=== PATIENT | female | born 1945 | race Caucasian/White ===

== ENCOUNTER 2025-05-26 18:07 | Emergency (ER) | payer OTHER, SELFPAY ==
[2025-05-26 18:11] VITALS: PULSE 90; RESP 20; O2SAT 99; BMI 20.1
--- NOTE | 2025-05-26 18:13 | EDNOTE_ITS ---
ED Weakness RME/HPI General Chief complaint: Weakness Stated complaint: WEAKNESS Time Seen by Provider: 05/26/25 18:11 Arrival date/time: 05/26/25 18:07 Limitations: no limitations RME / HPI RME / HPI Narrative: 80-year-old female is brought in by EMS for generalized weakness that started this morning. She has no cough, congestion, abdominal pain, nausea, vomiting. She has no fevers or chills. Has no urinary complaints. MD Complaint: generalized weakness Related Data Allergies Allergy/AdvReac Type Severity Reaction Status Date / Time acetaminophen Allergy Mild Verified 08/30/12 15:29 hydrocodone bit Allergy Mild Verified 08/30/12 15:29 Sulfa (Sulfonamide Allergy Mild Verified 08/30/12 15:29 Antibiotics) tramadol Allergy Mild Verified 08/30/12 15:29 Review of Systems Review of Systems Systems Reviewed: All systems reviewed, normal except as documented ED Exam General Limitations: Present no limitations General appearance: Present alert and in no apparent distress Head Head exam: Present atraumatic Eye Eye exam: Present normal appearance, PERRL and EOMI ENT ENT exam: Present normal exam, normal oropharynx and mucous membranes moist Neck Neck exam: Present normal inspection, full ROM and trachea midline Chest Chest inspection: Present normal inspection and symmetric chest wall rise Respiratory Respiratory exam: Present normal lung sounds bilaterally Cardiovascular Cardiovascular exam: Present regular rate, normal rhythm and normal heart sounds Abdominal Exam Abdominal exam: Present soft and normal bowel sounds Extremities Exam Extremities exam: Present normal inspection and full ROM Back Exam Back exam: Present normal inspection and full ROM Neurological Exam Neurological exam: Present alert and oriented X3 Psychiatric Psychiatric exam: Present normal affect Skin Skin exam: Present warm, dry, intact and normal color Course Quality Measures none Orders Category Date Time Status Bedside COVID-19 Antigen Test NOW Care 05/26/25 19:30 Completed Bedside Influenza A&B Antigen Test NOW Care 05/26/25 19:30 Completed XR chest 1V Stat Exams 05/26/25 18:29 Completed CBC Stat Lab 05/26/25 18:55 Completed CMP [Comprehensive Metabolic Panel] Stat Lab 05/26/25 18:55 Completed FLU A&B [Influenza A & B Rapid Panel] Stat Lab 05/26/25 18:12 Ordered UA [Urinalysis] Stat Lab 05/26/25 19:55 Completed Sodium Chloride 0.9% 500 ml [Ns] 500 ml Med 05/26/25 21:05 Active IV 999 mls/hr cefTRIAXone/D5w 1gm IV premix [Rocephin/D5w 1gm IV Med 05/26/25 21:05 Active premix] 1 gm in 50 ml IV X1 Vital Signs Vital signs: Vital Signs Temperature 100.2 F 05/26/25 18:30 Pulse Rate 78 05/26/25 18:30 Respiratory Rate 22 H 05/26/25 18:30 Blood Pressure 169/84 H 05/26/25 18:30 Pulse Oximetry (%) 93 L 05/26/25 18:30 Oxygen Delivery Method Room Air 05/26/25 18:30 Weakness MDM Narrative MDM Narrative:: 80-year-old female is brought in by EMS for generalized weakness that started this morning. She has no cough, congestion, abdominal pain, nausea, vomiting. She has no fevers or chills. Has no urinary complaints. On exam, patient is nontoxic-appearing in no visible signs distress. Vital signs are stable. She is afebrile. Workup reveals no leukocytosis, anemia, or metabolic derangement. Urinary tract infection is present. Screening test for COVID and influenza are negative. Chest reveals no pneumonia. When her test results were discussed with the patient and her son. Her son lives in [place], [place], he states he is able to visit her semifrequently but unable to provide continued care. There is no other family members in the region. 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 Patient has had ongoing episodes of forgetfulness and had some falls over the last 3 to 4 years. She has had no recent falls. She is here today for acute generalized weakness and a UTI. Patient may benefit from long-term placement in the family is agreeable with this. We will treat her urinary tract infection. Patient may benefit from OT evaluation and cognitive evaluation. She is agreeable to admission the hospital. Case discussed with her hospitalist who will admit the patient. Patient data External records reviewed:: None Clinical information provided by:: patient and family Social determinants that could affect healthcare access:: none (Patient was home alone) Patient has the following chronic illnesses:: n/a How is presenting disease/condition affected by chronic disease/condition?: exacerbated by Evaluation data The following diagnostics were reviewed and interpreted by me:: lab results (Patient has no leukocytosis or significant anemia. Metabolic panel is unremarked with the exception of a mild hyperglycemia at 128. Urine is consistent with a UTI, she has 42 erythrocytes and 444 leukocytes present. No squamous cells. 2+ bacteria.) Lab and/or radiology exams considered but not ordered:: n/s Interpretation Summary: Workup is consistent with UTI Medications / Prescriptions Medications or Prescriptions considered but not ordered:: n/a Medication administrations:: Medication Administration History Ceftriaxone Sodium/Dextrose (Rocephin/D5w 1gm Iv Premix) 1 gm in 50 mls @ 100 mls/hr IV X1 ONE Stop: 05/26/25 21:34 Last Admin: 05/26/25 21:15 Dose: 100 mls/hr Documented By: CASSIE Sodium Chloride (Ns) 500 mls @ 999 mls/hr IV .Q31M ONE Stop: 05/26/25 21:35 Last Admin: 05/26/25 21:13 Dose: 999 mls/hr Documented By: CASSIE Ceftriaxone Consultations Consultation(s) initiated? (list below): No Diagnosis Weakness Differential Diagnosis: anemia, hypoglycemia, sepsis and dehydration Most likely diagnosis given after review of the tests above:: UTI Admission Indicated Admission indicated?: not indicated Admission Request Was there a request for admission?: No Disposition Plan Disposition Plan: Discharge Discharge Attestation Discharge Attestation: The patient and all family members were given an opportunity to ask questions and understood the discharge instructions. Discharge instructions specifically effects, indications for sooner follow up or return to the emergency department, and the expected course of current diagnosis. Patient condition: Stable Discharge Plan Plan Patient Disposition: Admit Acute Care w/in Hospital Patient condition on transfer: Stable Prescriptions/Referrals Referrals: No Primary/Family,Physician [Primary Care Provider] - In 1 week Problem List Clinical Impression: Urinary tract infection Patient/Caregiver Discharge Instructions Education Materials: ED CYSTITIS Female Adult Print Language: Albanian Stand Alone Forms: Yasmin Award Info., Patient Portal Info Letter
--- NOTE | 2025-05-26 18:29 | XR_ITS ---
Examination: AP chest single view TECHNIQUE: AP portable semiupright chest single view Date and time: May 26, 2025 1857 hours Comparison September 18, 2021 INDICATIONS: Fever right flank pain beginning 2 days ago. FINDINGS: Normal heart size No lobar pneumonia. Minor atelectasis left base Mild vascular congestion. Prominent osteopenia IMPRESSION: No lobar pneumonia
[2025-05-26 18:30] VITALS: BP 169/84; PULSE 78; RESP 22; TEMP 37.9; O2SAT 93
[2025-05-26 19:18] LABS: Basophils # (Auto) 0.0 Thou/mm3 (0.0-0.2); Basophils % (Auto) 1 % (0-2.5); Eosinophils # (Auto) 0.0 Thou/mm3 (0.0-0.5); Eosinophils % (Auto) 0 % (0-10); Hematocrit 43.6 % (36.0-46.0); Hemoglobin 15.0 g/dL (12.0-16.0); Immature Granulocytes Auto 0.02 Thou/mm3 (0.00-0.00); Lymphocytes # (Auto) 0.7 Thou/mm3 (1.0-4.8); Lymphocytes % (Auto) 11 % (10-50); Mean Corpuscular HGB Conc 34.4 g/dl (31.0-37.0); Mean Corpuscular Hemoglobin 28.2 pg (25.0-35.0); Mean Corpuscular Volume 82 fL (80-100); Monocytes # (Auto) 0.3 Thou/mm3 (0.0-0.8); Monocytes % (Auto) 6 % (0-12); Neutrophils # (Auto) 4.9 Thou/mm3 (1.8-7.7); Neutrophils % (Auto) 82 % (37-80); Nucleated Red Blood Cell # 0.00 Thou/mm3 (0.00-0.00); Nucleated Red Blood Cell % 0 /100 WBC (0); Platelet Count 252 Thou/mm3 (140-440); RDW Standard Deviation 37.3 fL (36.4-46.3); Red Blood Count 5.32 Miln/mm3 (4.00-5.20); White Blood Count 6.0 Thou/mm3 (3.6-11.0)
[2025-05-26 19:37] LABS: Alanine Aminotransferase < 7 U/L (10-49); Albumin, Serum 4.2 gm/dL (3.4-4.8); Albumin/Globulin Ratio 1.4 (1.2-2.2); Alkaline Phosphatase 95 U/L (46-116); Anion Gap 10 (7-16); Aspartate Amino Transferase 15 U/L (0-34); BUN/Creatinine Ratio 12 Ratio (12-20); Bilirubin,Total 0.7 mg/dL (0.3-1.2); Blood Urea Nitrogen 11 mg/dL (9-23); Calcium 9.2 mg/dL (8.3-10.6); Calcium (Corrected) 9.2 mg/dL (8.5-10.1); Carbon Dioxide 23.0 mMol/L (20.0-31.0); Chloride 106 mMol/L (98-107); Creatinine (Component) 0.9 mg/dL (0.6-1.3); Estimated Creatinine Clearance 45.4 mL/min (>60); Globulin 3.1 gm/dL (2.3-3.5); Glucose 128 mg/dL (74-106); Osmolality,Calculated 278 (275-295); Potassium 4.2 mMol/L (3.4-5.1); Sodium 139 mMol/L (136-145); Total Protein 7.3 gm/dL (5.7-8.2); eGFR > 60 See Note
[2025-05-26 19:59] LABS: Collection Type, Urine Voided
[2025-05-26 20:09] LABS: Amorphous Crystals,Urine Present (Absent); Bacteria,Urine 2+; Bilirubin,Urine Negative (Negative); Blood,Urine 1+ (Negative); Clarity,Urine Turbid (Clear/Hazy); Color,Urine Yellow (Lt Yel-Yel); Glucose, Urine Negative (Negative); Ketones,Urine Negative (Negative); Leukocyte Esterase,Urine Positive (Negative); Nitrite,Urine Positive (Negative); PH,Urine 7.5 (5.0-7.0); Protein,Urine Trace (Neg - Trace); RBC,Urine 42 /hpf (0-3); Specific Gravity,Urine 1.013 (1.001-1.035); Squamous Epithelial Cell,Urine 1 /hpf (0-5); Urobilinogen,Urine Negative mg/dL (0.0-1.0); WBC,Urine 444 /hpf (0-5)
[2025-05-26] MEDS: SODIUM CHLORIDE 0.9% 500 ML 500 ML 999 ML IV (21:13)
[2025-05-26] MEDS: cefTRIAXone/D5w 1gm IV premix 1 GM/50 ML BAG IV (21:15)
[2025-05-26 22:01] VITALS: BP 172/86; PULSE 77
[2025-05-26] MEDS: hydrALAZINE INJ 20 MG/ML VIAL 5 MG IVP (22:01)
--- NOTE | 2025-05-26 22:01 | EVENTNT_ITS ---
Documentation for date of: 05/26/25 Event Note Event Note: 05/26/2025: Call from ED around 9:30 PM for patient Julia Bennett, 80-year-old presented with weakness found to have simple cystitis on urinalysis. Patient seen and examined alongside my attending; warm, the patient is awake and alert oriented x 3 and states that she has some burning sensation when she urinates but otherwise feels well. Patient denies having any fever/chills, hematuria, chest pain, shortness of breath or abdominal pain. Recommendation is for the patient to be treated for the simple cystitis and to be discharged based on placement needs. Robinson Gonzalez, DO PGY-2 Internal Medicine - [facility] Patient seen at bedside. She is alert and oriented x 3 and not encephalopathic at this time. Patient was found to have urinary tract infection. She also endorses generalized weakness. At this time I do not feel patient meets inpatient criteria. Recommend continuing antibiotics and physical therapy evaluation in the morning as patient lives alone and unsafe to discharge home. Likely will need to be placed to SNF from emergency room. Recommend outpatient referral to neurology as family has noticed a stepwise decline in her memory and likely has some form of undiagnosed dementia but currently is alert and oriented x 3. Dr. Martinez MD
--- NOTE | 2025-05-26 23:10 | EDNOTE_ITS ---
Emergency Room Addendum <Greta Bui - Last Filed: 05/27/25 03:00> Addendum Narrative: I took over the care from previous shift provider, Power Jaramillo PA-C, at 2300 on 05/26/2025. See previous notes for complete H & P and ED course. I was asked to take over this patient pending physical therapy evaluation in the morning. Patient is signed out to Dr. Cazares at 0600 on 05/27/25 pending PT evaluation and case management social worker consultation. Hardy Rodriguez MD <Hardy Rodriguez MD - Last Filed: 05/27/25 03:20> Addendum Narrative: I took over the care from previous shift provider, Power Jaramillo PA-C, at 2300 on 05/26/2025. See previous notes for complete H & P and ED course. Patient needs evaluation by our PT/OT and mental health social worker for long term placement. Rocephin and IV fluid ordered for UTI. At 6 AM on 05/27/2025, the care of the patient was transferred to Dr. Cazares. During my watch, the patient remained stable. Hardy Rodriguez MD
[2025-05-27] VITALS (7 sets, daily range): BP systolic 154–175; BP diastolic 71–91; PULSE 64–81; RESP 17–22; TEMP 36.8–37.4; O2SAT 94–96; BMI 11.0
[2025-05-27] MEDS: SODIUM CHLORIDE 0.9% 1000 ML 1,000 ML 100 ML IV (03:55)
--- NOTE | 2025-05-27 04:00 | PC.NURSE ---
PT GIVEN A SANDWICH AND JUICE BOX. EATING IN BED WITHOUT ANY ISSUES.
--- NOTE | 2025-05-27 09:20 | PC.SS ---
Addendum entered by Nancy Eastman 05/27/25 16:47: ASW received a call from [facility] stating they need to cancel the gurney transport. ASW asked Bertha Transfer RN to sign an DIYA and she agreed, as pts insurance does not cover ER transportation d/c. P/u ETA by [facility] is 1830 or sooner. Addendum entered by Nancy Eastman 05/27/25 15:44: ASW contacted Intake Admissions Ramona at [phone] and informed her of the p/u eta of 1845. Addendum entered by Nancy Eastman 05/27/25 15:41: ASW contacted pts daughter named Tasneem and informed her that pt was accepted to [facility] [facility]. Tasneem was grateful and appreciative of the work. Addendum entered by Nancy Eastman 05/27/25 15:30: Pt is fully accepted to [facility] and [facility] Addendum entered by Nancy Eastman 05/27/25 15:08: AUTH was approved for SNF placement to [place] [facility]. At this time, the wait is for [facility] to communicate and confirm their acceptance. ASW will arrange p/u ETA when acceptance is confirmed. Addendum entered by Nancy Eastman 05/27/25 14:14: ASW submitted AUTH to [facility] for SNF placement to [facility]. Pending AUTH Addendum entered by Nancy Eastman 05/27/25 13:59: ASW contacted Vern Rahman at [facility] asking for an update on the submitted AUTH. Vern will call back in about 1 hour with an update. As of now, there are no new updates. Addendum entered by Nancy Eastman 05/27/25 13:42: The below facilities denied due to the incorrect insurance information on the face sheet. The corrected face sheet is now uploaded to [facility]. ASW re-submitted the updated packet with the corrected face sheet to local SNFs. Pt and pts family want a SNF in [place]. ASW submitted for AUTH to [facility] and submitted PT eval for review. Pending AUTH at this time. Addendum entered by Nancy Eastman 05/27/25 10:57: The following facilities have declined: [facility] Addendum entered by Nancy Eastman 05/27/25 10:08: Pts clinicals have been submitted to SNF via [facility]; PT will be uploaded once ready. Addendum entered by Nancy Eastman 05/27/25 09:30: ASW called the pts daughter Tasneem to confirm the family agreement of a SNF placement. Tasneem reported that the pt, herself and brother all agreed last night for the pt to go to a SNF for rehab. It should be known that Tasneem reported that the pt fell down a few days ago and since then pt has reported she has been in pain and cannot walk. ASW will inform RN of the complaint. Original Note: Pt is a 80 yo female who will need SNF placement. PT is pending.
--- NOTE | 2025-05-27 09:44 | PD.EDADDENDU ---
Emergency Room Addendum Addendum Narrative: 0600: Care assumed from Dr. Cazares, the previous shift emergency physician. Past medical, surgical, social and family history reviewed. Vitals and home medications reviewed. I will assume the care of the patient at this time, pending PT evaluation and final disposition. Please refer to the emergency department record for history and examination from initial visit.?The following addendum documentation note is intended to reflect any pending information, findings, or radiology results not included in the patient?s initial chart. 0946: PT has evaluated the patient and is recommending SNF evaluation. Patient has been accepted at [place] with [facility]. EMS p/u at 18:45.
--- NOTE | 2025-05-27 09:51 | XR_ITS ---
Examination: CT pelvis without intravenous contrast. 2-D sagittal and coronal reconstructions. Date and time of exam:May 27, 2025, 10:29 AM INDICATIONS: Pelvic pain back pain today CTDI: vol (mGy) :7.31 DLP: (mGycm) : 221 Technique: Multiple 3 mm axial sections of the pelvis have been obtained with the 64 slice high resolution scanner. 2-D sagittal and coronal reconstructions. Low dose protocols were performed. One or more of the following dose reduction techniques were used; automated exposure control, adjustment of the mA and/or KV according to patient size, use of iterative reconstruction technique. Findings: Prominent osteopenia Mild narrowing hip joints Hips bones of the pelvis intact Abundant stool in the rectum Absent uterus Advanced disc narrowing L5-S1 IMPRESSION: Abundant stool in the rectosigmoid Advanced disc narrowing L5-S1
--- NOTE | 2025-05-27 10:20 | PC.PT ---
PT eval complete. Please refer to evaluation for further details.
[2025-05-27] MEDS: KETOROLAC INJ 30 MG/ML VIAL 15 MG IVP (10:59)
[2025-05-27] MEDS: cefTRIAXone/D5w 1gm IV premix 1 G/50 ML BAG IV (11:02)
--- NOTE | 2025-05-27 18:27 | PC.NURSE ---
Report given to [employer]os and organs salesperson Tod, patient transferring to [place] at [facility]. RN attempted to call SNF at [phone].
--- NOTE | 2025-05-27 18:30 | PC.NURSE ---
RN attempting to call Olivia Alexander at [facility] to [phone], no answer at this time. Will attempt again.
--- NOTE | 2025-05-27 19:30 | PC.NURSE ---
Rn gave report to Louann at [place] at [facility], eta given.
== END 2025-05-27 19:33 | disposition skilled nursing facility (03) ==
PROVIDERS: Physician Assistant Medical; Emergency Provider Family Medicine
DX: N39.0 Urinary tract infection, site not specified (principal); M85.88 Other specified disorders of bone density and structure, other site
CPT/HCPCS: 36415; 71045; 72192; 80053; 81001; 85025; 87400; 87502; 87811; 96361; 96365; 96367; 96375; 99284; J0360; J0696; J1885; J7030; J7999